=== PATIENT | male | born 1990 | race Caucasian/White ===

== ENCOUNTER → 2018-09-13 | Outpatient (CLI) | payer MEDICAID | LOC: FIMAGING 12:41 | PROVIDERS: ATTEND Orthopaedic Surgery Orthopaedic Surgery of the Spine | DX: S82.841K Displaced bimalleolar fracture of right lower leg, subsequent encounter for closed fracture with nonunion (principal); S82.92 Unspecified fracture of left lower leg ==

== ENCOUNTER → 2019-04-10 | Outpatient (CLI) | payer MEDICAID | LOC: CIMAGING 15:59 | PROVIDERS: ATTEND Family Medicine | DX: M25.532 Pain in left wrist (principal); G89.4 Chronic pain syndrome; Z87.81 Personal history of (healed) traumatic fracture | CPT/HCPCS: 73110-PO ==